=== PATIENT | female | born 1960 | race Hispanic/Latino ===

== ENCOUNTER → 2020-04-21 | Day surgery (SDC) | payer OTHER ==
[~2020-04-21] VITALS: Ht 162.6 cm; Wt 103.0 kg
[~2020-04-21] MED LIST: GLUCOSAMIN-CHO1 EACH PO; LIDOCAINE HCL 2% LOCAL INJ 5 ML SDV VIAL INJ ONE; PROPOFOL IV EMULSION 10 MG/ML 20 ML VIAL ONE; PROZAC20 MG PO; PROZAC40 MG PO
[2020-04-21 09:55] VITALS: BP 127/81
== END | disposition home or self-care (01) ==
LOC: OR 07:13
PROVIDERS: ATTEND Internal Medicine Gastroenterology
DX: K59.00 Constipation, unspecified (principal); K64.8 Other hemorrhoids; K76.0 Fatty (change of) liver, not elsewhere classified; E66.01 Morbid (severe) obesity due to excess calories; Z68.38 Body mass index [BMI] 38.0-38.9, adult; Z01.810 Encounter for preprocedural cardiovascular examination; Z01.812 Encounter for preprocedural laboratory examination; Z11.59 Encounter for screening for other viral diseases
CPT/HCPCS: 45378; 93005; J2001; J2704; U0002